=== PATIENT | female | born 1975 | race Two or more races ===

== ENCOUNTER 2018-05-27 13:15 | Emergency (ER) | payer BC, MEDICAID ==
[~2018-05-27] VITALS: Ht 157.5 cm; Wt 79.0 kg
[2018-05-27 15:21] VITALS: BP 128/85
== END 2018-05-27 16:44 | disposition home or self-care (01) ==
LOC: ER 13:15
DX: M79.675 Pain in left toe(s) (principal); E11.9 Type 2 diabetes mellitus without complications
CPT/HCPCS: 99283

== ENCOUNTER 2019-05-23 13:03 | Emergency (ER) | payer BC, MEDICAID ==
[~2019-05-23] VITALS: Ht 160 cm; Wt 73.0 kg
[2019-05-23 13:29] VITALS: BP 133/89
[2019-05-23] MEDS ORDERED: LIDOCAINE 1%/EPI 1:100,000 10 ML VIAL IJ ONE (15:00)
[2019-05-23] MEDS ORDERED: TETANUS, DIPHTHERIA, PERTUSSIS VAC/PF 0.5ML (>7YR OLD) IM ONE (15:00)
[2019-05-23] MEDS ORDERED: BACITRACIN ZINC OINT UDPKT TOP ONE (15:00)
[2019-05-23] MEDS ORDERED: LIDOCAINE HCL/EPINEPHRINE 1%-EPI 1:100,000 20 ML VIAL INFIL NR (15:30)
== END 2019-05-23 17:43 | disposition home or self-care (01) ==
LOC: ER 13:03
DX: S61.411A Laceration without foreign body of right hand, initial encounter (principal); W26.0XXA Contact with knife, initial encounter; Y93.89 Activity, other specified; Y92.89 Other specified places as the place of occurrence of the external cause; R03.0 Elevated blood-pressure reading, without diagnosis of hypertension
CPT/HCPCS: 90715; 99283; J3490

== ENCOUNTER 2024-02-12 09:40 | Emergency (ER) | payer BC, MEDICAID ==
[~2024-02-12] VITALS: Ht 165.1 cm; Wt 70.0 kg
[2024-02-12 09:43] VITALS: TEMP 98.5; O2SAT 98
[2024-02-12 10:34] LABS: BASOPHILS % 0.2 % (0.0-2.0); EOSINOPHILS % 2.7 % (0.0-5.0); HEMATOCRIT. 33.3 % (36.0-48.0); HEMOGLOBIN. 11.4 g/dL (12.0-16.0); LYMPHOCYTES % 33.2 % (20.0-50.0); MEAN CORPUSCULAR HEMOGLOBIN 30.5 pg (28.0-32.0); MEAN CORPUSCULAR HGB CONC 34.2 g/dL (31.0-37.0); MEAN CORPUSCULAR VOLUME 89.2 fL (81.0-99.0); MEAN PLATELET VOLUME 8.2 fl (7.4-10.4); MONOCYTES % 5.5 % (2.0-8.0); NEUTROPHILS % 58.4 % (40.0-76.0); PLATELET 231 x1000/uL (130-400); RED BLOOD CELL COUNT 3.73 mill/uL (4.2-5.4); RED CELL DISTRIBUTION WIDTH 12.4 % (11.6-14.6); WHITE BLOOD COUNT 7.6 x1000/uL (4.5-11.0)
[2024-02-12 10:52] LABS: CHLORIDE 106 mEq/L (98-107); POTASSIUM 3.9 mEq/L (3.5-5.1); SODIUM 138 mEq/L (136-145)
[2024-02-12 10:53] LABS: CARBON DIOXIDE 22 mEq/L (21-32)
[2024-02-12 10:54] LABS: CALCIUM 8.7 mg/dL (8.7-10.4)
[2024-02-12 10:59] LABS: CREATININE 0.8 mg/dL (0.6-1.0); UREA NITROGEN BLOOD 13 mg/dL (9-23)
[2024-02-12 11:49] LABS: GLUCOSE 438 mg/dL (70-105)
[2024-02-12] MEDS: ONDANSETRON HCL 4MG/2ML INJ IV ONE (12:09)
[2024-02-12] MEDS: INSULIN LISPRO 100 UNITS/ML SUBCUT ONE (12:09)
[2024-02-12 14:21] VITALS: BP 107/55; PULSE 90; RESP 16; O2SAT 99
== END 2024-02-12 15:55 | disposition home or self-care (01) ==
LOC: ER 09:40
DX: N94.89 Other specified conditions associated with female genital organs and menstrual cycle (principal); E11.9 Type 2 diabetes mellitus without complications; Z98.890 Other specified postprocedural states
CPT/HCPCS: 37799; 99284; 96374; 80048; 82962; 85025; 36415; 96372; J1815; J2405